=== PATIENT | female | born 1965 | race African-American/Black ===

== ENCOUNTER 2022-02-05 11:16 | Emergency (ER) | payer MEDICAID, OTHER ==
[~2022-02-05] VITALS: Ht 165.1 cm; Wt 82.0 kg
[2022-02-05] MEDS ORDERED: ONDANSETRON HCL 4MG/2ML INJ IV ONE ×2 (11:45→16:00)
[2022-02-05] MEDS ORDERED: SODIUM CHLORIDE 0.9% 1,000 ML IV ONE (11:45)
[2022-02-05 11:59] LABS: BASOPHILS % 0.5 % (0.0-2.0); EOSINOPHILS % 0.4 % (0.0-5.0); HEMATOCRIT. 40.3 % (36.0-48.0); HEMOGLOBIN. 13.4 g/dL (12.0-16.0); LYMPHOCYTES % 21.4 % (20.0-50.0); MEAN CORPUSCULAR HEMOGLOBIN 27.6 pg (28.0-32.0); MEAN CORPUSCULAR VOLUME 82.8 fL (81.0-99.0); MEAN PLATELET VOLUME 9.9 fl (7.4-10.4); MONOCYTES % 3.2 % (2.0-8.0); NEUTROPHILS % 74.5 % (40.0-76.0); PLATELET 205 x1000/uL (130-400); RED BLOOD CELL COUNT 4.86 mill/uL (4.2-5.4); RED CELL DISTRIBUTION WIDTH 16.2 % (11.6-14.6)
[2022-02-05 12:03] LABS: CHLORIDE 102 mEq/L (98-107)
[2022-02-05 12:14] LABS: PHOSPHORUS 3.9 mg/dL (2.5-4.9)
[2022-02-05 15:21] VITALS: BP 124/78
[2022-02-05] MEDS ORDERED: ONDANSETRON HCL 4MG/2ML INJ ONE (15:59)
== END 2022-02-05 16:14 | disposition short-term general hospital (02) ==
LOC: ER 12:11
DX: I21.4 Non-ST elevation (NSTEMI) myocardial infarction (principal); E11.65 Type 2 diabetes mellitus with hyperglycemia; I10 Essential (primary) hypertension; Z20.822 Contact with and (suspected) exposure to COVID-19; I69.322 Dysarthria following cerebral infarction; I69.398 Other sequelae of cerebral infarction; Z99.3 Dependence on wheelchair
CPT/HCPCS: 36415; 80053; 82962; 83690; 83735; 83880; 84100; 84484; 85025; 87426; 93005; 96361; 96374; 99284; C9803; J2405; J7030